=== PATIENT | female | born 1990 | race American Indian/Alaskan Native ===

== ENCOUNTER 2019-12-02 03:34 | Emergency (ER) | payer SELFPAY ==
[2019-12-02 03:41] VITALS: BP 134/94
[2019-12-02] MEDS ORDERED: IPRATROPIUM/ALBUTEROL SULFATE 3 ML AMPUL.NEB IH ONE (03:57)
--- NOTE | 2019-12-02 04:45 | XRay Report ---
CHEST 2 VIEWS, 12/02/2019 4:10 AM INDICATION: Shortness of breath COMPARISON: None FINDINGS: Support devices: None Heart: The heart is normal in size. Lungs/pleura: The lungs are clear of focal airspace disease or significant pleural effusion. Additional findings: None IMPRESSION: 1. No evidence of acute cardiopulmonary process. Signer Name: Krystal Merchant MD Signed: 12/02/2019 4:40 AM Workstation Name: [id number]
== END 2019-12-02 07:25 | disposition left against medical advice (07) ==
LOC: ED 03:34
DX: R06.02 Shortness of breath (principal); Z53.21 Procedure and treatment not carried out due to patient leaving prior to being seen by health care provider
CPT/HCPCS: 71046

== ENCOUNTER 2019-12-07 11:49 | Emergency (ER) | payer SELFPAY ==
[2019-12-07 12:30] VITALS: BP 122/78
[2019-12-07] MEDS ORDERED: dexAMETHasone 20 MG/5 ML VIAL IM ONE (12:30)
[2019-12-07] MEDS ORDERED: ALBUTEROL 2.5 MG/3 ML NEBU IH ONE ×2 (12:30→12:41)
[2019-12-07] MEDS ORDERED: IPRATROPIUM 0.02% NEBU 2.5 ML IH ONE ×2 (12:30→12:41)
--- NOTE | 2019-12-07 12:31 | Event Note ---
ED Screening Note Date of service: 12/07/19 Time: 12:27 ED Screening Note: 29 y/o female comes in for 3 day history of SOB and wheezing. Has been out of her meds for 1month. Denies any fever, chill, Chest pain with deep breath. LMP 11/11/19. Exam end exp wheeze. This initial assessment/diagnostic orders/clinical plan/treatment(s) is/are subject to change based on patients health status, clinical progression and re- assessment by fellow clinical providers in the ED. Further treatment and workup at subsequent clinical providers discretion. Patient/guardian urged not to elope from the ED as their condition may be serious if not clinically assessed and managed. Initial orders include:
--- NOTE | 2019-12-07 12:45 | Emergency Department Report ---
HPI - General Chief Complaint: Dyspnea/Respdistress Time Seen by Provider: 12/07/19 12:27 - HPI HPI: Room 42 The patient is a 29-year-old female presenting with chief complaint of asthma exacerbation. Patient states for the past 2 days she says shortness of breath tightness in the chest and wheezing consistent with her previous bouts of asthma. Patient was an occasional cough but denies fever. Patient states she is visiting from out of town and does not have her nebulizer or inhaler handy Location: [See above] Duration: [See above] Quality: [See above] Severity: [See above] Timing: [See above] Context: [See above] Modifying factors: [See above] Associated signs and symptoms: [see above] ED Past Medical Hx - Past Medical History Hx Asthma: Yes - Surgical History Past Surgical History?: No - Family History Family history: no significant - Social History Smoking Status: Never Smoker (denies illicit drug use) Substance Use Type: Alcohol (occasional) - Medications Home Medications: Home Medications Medication Instructions Recorded Confirmed Last Taken Type Albuterol INH(or & Nicu Only) 2 puff IH QID PRN #8.5 gram 12/07/19 Unknown Rx [ProAir HFA Inhaler] Albuterol Sulfate [Albuterol 0.63% 0.63 mg IH TID PRN #90 ml 12/07/19 Unknown Rx NEBS] Prednisone [predniSONE 10 mg 10 mg PO .TAPER #1 tab.ds.pk 12/07/19 Unknown Rx (6-Day Pack, 21 Tabs)] ED Review of Systems ROS: Stated complaint: TIGHT IN CHEST/SOB/WHEEZING Other details as noted in HPI Constitutional: denies: fever Eyes: denies: eye pain ENT: denies: throat pain Respiratory: cough, shortness of breath, wheezing Physical Exam - Physical Exam Vital Signs: Vital Signs 12/07/19 12:27 Temperature 98.4 F Pulse Rate 89 Respiratory 18 Rate Blood Pressure 122/78 O2 Sat by Pulse 100 Oximetry Physical Exam: GENERAL: The patient is well-developed well-nourished female sitting on stretcher not appearing to be in acute distress. [] HEENT: Normocephalic. Atraumatic. Extraocular motions are intact. Patient has moist mucous membranes. NECK: Supple. Trachea midline CHEST/LUNGS: Faint wheezing bilaterally. There is no respiratory distress noted. HEART/CARDIOVASCULAR: Regular. There is no tachycardia. There is no gallop rub or murmur. ABDOMEN: Abdomen is soft, nontender. Patient has normal bowel sounds. There is no abdominal distention. SKIN: There is no rash. There is no edema. There is no diaphoresis. NEURO: The patient is awake, alert, and oriented. The patient is cooperative. The patient has normal speech MUSCULOSKELETAL: There is no evidence of acute injury. ED Course Vital Signs 12/07/19 12:27 Temperature 98.4 F Pulse Rate 89 Respiratory 18 Rate Blood Pressure 122/78 O2 Sat by Pulse 100 Oximetry - Reevaluation(s) Reevaluation #1: 12/07/19 14:04 Patient states she feels improved. Lungs clear to auscultation bilaterally ED Medical Decision Making - Differential Diagnosis acute asthma exacerbation Critical care attestation.: If time is entered above; I have spent that time in minutes in the direct care of this critically ill patient, excluding procedure time. ED Disposition Clinical Impression: Acute asthma exacerbation Disposition: DC-01 TO HOME OR SELFCARE Is pt being admited?: No Does the pt Need Aspirin: No Condition: Stable Instructions: Asthma (ED) Additional Instructions: Return to the emergency department should you develop worsening symptoms, inability to tolerate food or liquids, high fever or any other concerns Prescriptions: Albuterol Sulfate [Albuterol 0.63% NEBS] 0.63 mg IH TID PRN #90 ml PRN Reason: Wheezing Prednisone [predniSONE 10 mg (6-Day Pack, 21 Tabs)] 10 mg PO .TAPER #1 tab.ds.pk Albuterol INH(or & Nicu Only) [ProAir HFA Inhaler] 2 puff IH QID PRN #8.5 gram PRN Reason: Shortness Of Breath Referrals: PRIMARY CARE, [Primary Care Provider] - 3-5 Days [facility] [Outside] - 3-5 Days Time of Disposition: 14:05
== END 2019-12-07 14:58 | disposition home or self-care (01) ==
LOC: ED 11:49
DX: J45.901 Unspecified asthma with (acute) exacerbation (principal); F10.10 Alcohol abuse, uncomplicated; Z79.899 Other long term (current) drug therapy
CPT/HCPCS: 94640; 96372; 99282; J1100; 94644